=== PATIENT | female | born 1980 | race Caucasian/White ===

== ENCOUNTER → 2022-11-27 | Outpatient (CLI) | payer BC ==
--- NOTE | 2022-11-27 13:55 | CA ---
Transthoracic Echo Report Name: Jewell Morris Age: 42 Gender: F : 1980 Exam Date: 11/27/2022 08:36 Exam Location: [facility] Ht (in): 66 Wt (lb): 150 Ordering Physician: Claudine Nash MD Attending/Referring Phys: Karla Purcell [facility] [employer] Eli Kay RDCS Procedure CPT: Indications: R01.1 Murmur Cardiac Hx: fam HX Technical Quality: Good Contrast 1: Total Dose (mL): Contrast 2: Total Dose (mL): MEASUREMENTS (Male / Female) Normal Values 2D ECHO LV Diastolic Diameter PLAX 3.3 cm 4.2 - 5.9 / 3.9 - 5.3 cm LV Systolic Diameter PLAX 2.4 cm IVS Diastolic Thickness 1.0 cm 0.6 - 1.0 / 0.6 - 0.9 cm LVPW Diastolic Thickness 1.0 cm 0.6 - 1.0 / 0.6 - 0.9 cm LV Relative Wall Thickness 0.6 RV Internal Dim ED PLAX 2.2 cm LVOT Diameter 2.8 cm LA Systolic Diameter LX 2.9 cm 3.0 - 4.0 / 2.7 - 3.8 cm LV Diastolic Volume MOD 4C 65.5 cm??? LV Systolic Volume MOD 4C 26.5 cm??? LV Ejection Fraction MOD 4C 59.5 % LV Cardiac Index MOD 4C 1722.7 cm???/min???m??? LV Diastolic Length 4C 7.1 cm LV Systolic Length 4C 5.8 cm LV Diastolic Volume MOD 2C 65.2 cm??? LV Systolic Volume MOD 2C 29.6 cm??? LV Ejection Fraction MOD 2C 54.6 % LV Cardiac Index MOD 2C 1573.4 cm???/min???m??? LV Diastolic Length 2C 8.0 cm LV Systolic Length 2C 6.7 cm LA Volume 26.3 cm??? 18 - 58 / 22 - 52 cm??? M-MODE Aortic Root Diameter MM 2.5 cm MV E Point Septal Separation 0.3 cm AV Cusp Separation MM 1.9 cm DOPPLER AV Peak Velocity 125.8 cm/s AV Peak Gradient 6.3 mmHg MV Area PHT 3.6 cm??? Mitral E Point Velocity 87.4 cm/s Mitral A Point Velocity 71.8 cm/s Mitral E to A Ratio 1.2 MV Deceleration Time 209.1 ms MV E' Velocity 9.1 cm/s Mitral E to MV E' Ratio 9.6 TR Peak Velocity 182.7 cm/s TR Peak Gradient 13.4 mmHg Right Ventricular Systolic Press 18.4 mmHg FINDINGS Left Ventricle Left ventricular ejection fraction is estimated at 55-60 %. Small left ventricular cavity. Left ventricular wall thickness normal. Right Ventricle Normal right ventricular size and function. Right ventricular systolic pressure within normal limits. Right Atrium Normal right atrial size. Left Atrium Normal left atrial size. Mitral Valve Structurally normal mitral valve. No mitral stenosis, regurgitation or prolapse. Aortic Valve Trileaflet aortic valve. No aortic valve stenosis or regurgitation. Tricuspid Valve Structurally normal tricuspid valve. Trace tricuspid regurgitation. Pulmonic Valve Structurally normal pulmonic valve. Pericardium No pericardial effusion. Aorta Normal size aortic root and proximal ascending aorta. CONCLUSIONS Left ventricular ejection fraction 55-60% Normal left ventricular wall thickness No mitral regurgitation Trace tricuspid regurgitation No pericardial effusion Previewed by: Dr. Hollis Ybarra DO (Electronically Signed) Final Date: 27 November 2022 13:54
== END | disposition home or self-care (01) ==
LOC: RADECHMAIN 08:25
PROVIDERS: ATTEND Family Medicine
DX: I07.1 Rheumatic tricuspid insufficiency (principal); R00.2 Palpitations; R01.1 Cardiac murmur, unspecified
CPT/HCPCS: 93306